=== PATIENT | female | born 1960 | race Two or more races ===

== ENCOUNTER 2018-09-26 10:13 | Outpatient (CLI) | payer OTHER | END 2018-09-26 10:20 | disposition home or self-care (01) | LOC: SONOGRAMA 10:13 → MAMO-SONO 10:15 → SONOGRAMA 10:20 | DX: E04.2 Nontoxic multinodular goiter (principal) ==

== ENCOUNTER 2019-02-15 08:29 | Outpatient (CLI) | payer OTHER | END 2019-02-15 11:28 | disposition home or self-care (01) | LOC: SONOGRAMA 08:29 | DX: E04.1 Nontoxic single thyroid nodule (principal) ==

== ENCOUNTER 2020-02-24 08:44 | Outpatient (CLI) | payer OTHER | END 2020-02-24 08:54 | disposition home or self-care (01) | LOC: SONOGRAMA 08:44 → MAMO-SONO 08:45 → SONOGRAMA 08:54 | PROVIDERS: ATTEND Internal Medicine Rheumatology | DX: K80.80 Other cholelithiasis without obstruction (principal); K85.00 Idiopathic acute pancreatitis without necrosis or infection ==

== ENCOUNTER → 2020-10-27 08:04 | Outpatient (CLI) | payer OTHER | END | disposition home or self-care (01) | LOC: MRI 08:04 | PROVIDERS: ATTEND Specialist | DX: K80.10 Calculus of gallbladder with chronic cholecystitis without obstruction (principal); K85.30 Drug induced acute pancreatitis without necrosis or infection | CPT/HCPCS: 74181 ==

== ENCOUNTER 2023-09-19 08:17 | Outpatient (CLI) | payer OTHER | END 2023-09-19 08:26 | disposition home or self-care (01) | LOC: RAD 08:17 | DX: M25.552 Pain in left hip (principal); Z96.642 Presence of left artificial hip joint ==

== ENCOUNTER 2023-11-25 08:07 | Outpatient (CLI) | payer OTHER | END 2023-11-25 08:23 | disposition home or self-care (01) | LOC: MAMO-SONO 08:07 | DX: Z12.31 Encounter for screening mammogram for malignant neoplasm of breast (principal) ==

== ENCOUNTER 2024-06-02 09:48 | Outpatient (CLI) | payer OTHER | END 2024-06-02 10:05 | disposition home or self-care (01) | LOC: RAD 09:48 | DX: Z96.652 Presence of left artificial knee joint (principal); Z96.642 Presence of left artificial hip joint; M25.462 Effusion, left knee; M25.562 Pain in left knee ==